=== PATIENT | female | born 1960 | race Caucasian/White ===

== ENCOUNTER 2022-06-03 11:54 | Emergency (ER) | payer MEDICAID ==
[~2022-06-03] VITALS: Ht 175.3 cm; Wt 77.0 kg
[~2022-06-03 11:54] MED LIST: CEPH500C2 MT; SULF1TAB48 MT
[2022-06-03] MEDS ORDERED: NAP5EC PO (13:02)
[2022-06-03] MEDS ORDERED: CYCL10TA21 PO (13:02)
[2022-06-03 13:15] VITALS: BP 162/87
[2022-06-03] MEDS ORDERED: KETOROLAC 30MG/ML VIAL IM ONE (13:15)
== END 2022-06-03 13:21 | disposition home or self-care (01) ==
LOC: ER 12:03
DX: S16.1XXA Strain of muscle, fascia and tendon at neck level, initial encounter (principal); V49.49XA Driver injured in collision with other motor vehicles in traffic accident, initial encounter; Y93.89 Activity, other specified; Y92.89 Other specified places as the place of occurrence of the external cause; Y99.8 Other external cause status; M79.10 Myalgia, unspecified site; E11.9 Type 2 diabetes mellitus without complications; I10 Essential (primary) hypertension; Z79.899 Other long term (current) drug therapy
CPT/HCPCS: 96372; 99283; J1885; Z7610